=== PATIENT | female | born 1935 | race Caucasian/White ===

== ENCOUNTER 2017-01-11 10:29 | Emergency (ER) | payer OTHER ==
[~2017-01-11] VITALS: Ht 130.8 cm; Wt 43.3 kg
[2017-01-11 10:35] VITALS: BP 132/58
--- NOTE | 2017-01-11 10:39 | NUR ---
pt taken to bed 5 Addendum: 01/11/17 at 1044 by [facility] FAMILY AT BEDSIDE.
--- NOTE | 2017-01-11 10:40 | NUR ---
81F BIB FAMILY C/O RIGHT KNEE PAIN X YESTERDAY WHILE WALKING; PT STATES NO TRAUMA, FALL OR INJURY TO SITE. DENIES N/V/D; SKIN IS PINK/WARM/DRY; AAOX4 AND UNSTEADY GAIT; LUNGS CLEAR BL; HR EVEN AND REGULAR; PT DENIES ANY FEVER, CP, SOB, OR COUGH AT THIS TIME; PATIENT STATES PAIN OF 9/10 AT THIS TIME; VSS; PATIENT POSITIONED FOR COMFORT; HOB ELEVATED; BEDRAILS UP X2; BED DOWN. ER MD MADE AWARE OF PT STATUS.
--- NOTE | 2017-01-11 11:00 | NUR ---
PT HAS COUGH AT THIS TIME.
--- NOTE | 2017-01-11 11:04 | NUR ---
PT AMB WITH CANE TO RESTROOM. Addendum: 01/11/17 at 1113 by [email or web address] URINE DIP DONE.
--- NOTE | 2017-01-11 11:12 | NUR ---
X RAY AT BEDSIDE
[2017-01-11] MEDS ORDERED: ACETAMINOPHEN EXTRA STRENGTH 500 MG TAB PO ONE (12:20)
--- NOTE | 2017-01-11 12:25 | NUR ---
GAVE MED ORDER. Addendum: 01/11/17 at 1240 by [email or web address] Patient appears to be resting comfortably in bed. Vital Signs within normal limits. Respirations even and unlabored.WILL CONTINUE TO MONITOR.
--- NOTE | 2017-01-11 12:26 | NUR ---
SHAUNA WRAP TO R KNEE DONE BY GUANAKITO WHITEHEAD.
[2017-01-11 12:38] VITALS: BP 124/80
--- NOTE | 2017-01-11 12:39 | NUR ---
Patient discharged with v/s stable. Written and verbal after care instructions given and explained. Patient verbalized understanding. Ambulatory with steady gait. All questions addressed prior to discharge. Advised to follow up with PMD.
== END 2017-01-11 12:39 | disposition home or self-care (01) ==
LOC: MED 10:29
DX: M17.11 Unilateral primary osteoarthritis, right knee (principal)
CPT/HCPCS: 36415; 73562; 99285; G0480; Q0092; 81002